=== PATIENT | male | born 1985 | race Caucasian/White ===

== ENCOUNTER 2020-12-21 09:00 | Outpatient (RCR) | payer OTHER, SELFPAY ==
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
== END 2021-01-01 12:16 | disposition home or self-care (01) ==
LOC: HO.PT 09:00
PROVIDERS: PCP Internal Medicine; Visit Provider Nurse Practitioner Family
DX: M54.2 Cervicalgia (principal); M62.830 Muscle spasm of back; M54.9 Dorsalgia, unspecified; M79.605 Pain in left leg
CPT/HCPCS: 97014; 97110; 97116; 97140; 97162

== ENCOUNTER 2021-04-30 08:26 | Outpatient (REF) | payer OTHER, SELFPAY ==
[2021-04-30 08:39] LABS: MANUAL DIFF FLAG NO
[2021-04-30 08:49] LABS: Basophils Absolute Auto 0.1 X10*3/uL (0.0-0.2); Basophils Percent Auto 0.9 % (0-2); Eosinophils Absolute Auto 0.1 X10*3/uL (0.0-0.4); Eosinophils Percent Auto 1.9 % (0-4); Hematocrit 40.6 % (42.0-52.0); Hemoglobin 12.9 g/dl (14.0-18.0); Imm Gran Abs Auto 0.02 X10*3/uL (0.00-0.03); Imm Gran Pct Auto 0.3 % (0.0-0.4); Lymphocytes Absolute Auto 2.5 X10*3/uL (1.2-4.9); Lymphocytes Percent Auto 37.2 % (20-40); Mean Corpuscular HGB Conc 31.8 g/dl (31.0-36.0); Mean Corpuscular Hemoglobin 28.9 pg (27.0-33.0); Mean Corpuscular Volume 90.8 fL (80.0-98.0); Mean Platelet Volume 9.3 fL (9.4-12.4); Monocytes Absolute Auto 0.6 X10*3/uL (0.1-1.2); Monocytes Percent Auto 8.5 % (2-11); Neutrophils Absolute Auto 3.4 x10*3/uL (2.0-8.3); Neutrophils Percent Auto 51.2 % (45-73); Platelet Count 313 X10*3/uL (160-400); Red Blood Count 4.47 X10*6/uL (4.60-5.80); Red Cell Distribution Width 12.8 % (11.0-16.0); White Blood Count 6.7 X10*3/uL (4.8-10.8)
[2021-04-30 09:28] LABS: Alanine Aminotransferase 29 U/L (0-40); Albumin Level 4.4 g/dL (3.5-5.0); Alkaline Phosphatase 77 U/L (39-117); Anion Gap 12 (12-20); Aspartate Amino Transferase 19 U/L (5-37); Bilirubin Total 0.3 mg/dL (0.0-1.0); Blood Urea Nitrogen 10 mg/dL (9-16); Calcium 9.7 mg/dL (8.4-10.2); Carbon Dioxide 27 mmol/L (22-29); Chloride 108 mmol/L (96-108); Cholesterol 163 mg/dL; Estimated Glomerular Filt Rate > 60; Glucose Fasting 106 mg/dL (60-99); HDL Cholesterol 23 mg/dL; LDL Cholesterol Calculated 105 mg/dl; Potassium 4.5 mmol/L (3.3-5.1); Sodium 142 mmol/L (135-145); Total Protein 7.2 g/dL (6.5-8.0); Triglycerides 178 mg/dL
[2021-04-30 09:43] LABS: HIV AB/AG Nonreactive (Nonreactive); HIV Num 1 0.07 S/CO (0.00-0.99); ~HepC Num1 0.13 S/CO (0.00-0.79); ~Hepatitis C Antibody Nonreactive (Nonreactive)
[2021-04-30 09:50] LABS: TSH reflex Free T4 0.82 uIU/mL (0.32-4.0)
== END 2021-04-30 08:27 | disposition home or self-care (01) ==
LOC: HO.LAB 08:26
PROVIDERS: PCP Nurse Practitioner Family; Visit Provider Nurse Practitioner Family
DX: Z11.59 Encounter for screening for other viral diseases (principal); Z11.4 Encounter for screening for human immunodeficiency virus [HIV]; I10 Essential (primary) hypertension; I83.90 Asymptomatic varicose veins of unspecified lower extremity; E78.00 Pure hypercholesterolemia, unspecified; Z83.3 Family history of diabetes mellitus
CPT/HCPCS: 36415; 80053; 80061; 84443; 85025; 86803; 87389

== ENCOUNTER 2021-09-03 07:38 | Outpatient (REF) | payer OTHER, SELFPAY ==
[2021-09-03 08:05] LABS: MANUAL DIFF FLAG NO
[2021-09-03 08:20] LABS: Basophils Absolute Auto 0.1 X10*3/uL (0.0-0.2); Basophils Percent Auto 0.7 % (0-2); Eosinophils Absolute Auto 0.1 X10*3/uL (0.0-0.4); Eosinophils Percent Auto 1.5 % (0-4); Hematocrit 40.1 % (42.0-52.0); Hemoglobin 12.9 g/dl (14.0-18.0); Imm Gran Abs Auto 0.03 X10*3/uL (0.00-0.03); Imm Gran Pct Auto 0.4 % (0.0-0.4); Lymphocytes Absolute Auto 2.3 X10*3/uL (1.2-4.9); Lymphocytes Percent Auto 26.8 % (20-40); Mean Corpuscular HGB Conc 32.2 g/dl (31.0-36.0); Mean Corpuscular Hemoglobin 29.5 pg (27.0-33.0); Mean Corpuscular Volume 91.8 fL (80.0-98.0); Mean Platelet Volume 9.4 fL (9.4-12.4); Monocytes Absolute Auto 0.8 X10*3/uL (0.1-1.2); Monocytes Percent Auto 8.9 % (2-11); Neutrophils Absolute Auto 5.3 x10*3/uL (2.0-8.3); Neutrophils Percent Auto 61.7 % (45-73); Platelet Count 303 X10*3/uL (160-400); Red Blood Count 4.37 X10*6/uL (4.60-5.80); Red Cell Distribution Width 13.1 % (11.0-16.0); White Blood Count 8.6 X10*3/uL (4.8-10.8)
[2021-09-03 08:41] LABS: Cholesterol 121 mg/dL; Glucose Fasting 90 mg/dL (60-99); HDL Cholesterol 23 mg/dL; LDL Cholesterol Calculated 86 mg/dl; Triglycerides 60 mg/dL
[2021-09-03 08:43] LABS: Estimated Average Glucose 97 mg/dL
== END 2021-09-03 07:39 | disposition home or self-care (01) ==
LOC: HO.LAB 07:38
PROVIDERS: PCP Nurse Practitioner Family; Visit Provider Nurse Practitioner Family
DX: Z00.00 Encounter for general adult medical examination without abnormal findings (principal); Z11.4 Encounter for screening for human immunodeficiency virus [HIV]; Z11.59 Encounter for screening for other viral diseases; E78.00 Pure hypercholesterolemia, unspecified; E11.9 Type 2 diabetes mellitus without complications; I83.90 Asymptomatic varicose veins of unspecified lower extremity; I10 Essential (primary) hypertension; Z83.3 Family history of diabetes mellitus
CPT/HCPCS: 36415; 80061; 82947; 83036; 85025

== ENCOUNTER → 2021-10-21 12:40 | Outpatient (BNVA) | payer OTHER, SELFPAY | PROVIDERS: PCP Nurse Practitioner Family; Visit Provider Surgery Vascular Surgery | DX: I83.12 Varicose veins of left lower extremity with inflammation (principal) | CPT/HCPCS: 99202 ==

== ENCOUNTER 2021-12-22 10:14 | Outpatient (REF) | payer OTHER, SELFPAY ==
--- NOTE | ~2021-12-22 | US_ITS ---
EXAMINATION: RIGHT and LEFT LOWER EXTREMITY VENOUS ULTRASOUND (Reflux Exam) CLINICAL INDICATION: leg pain and varicose veins. COMPARISON: None. TECHNIQUE: Color flow triplex imaging and compression Doppler was performed to evaluate both the deep and the superficial systems bilaterally. To evaluate the superficial system, the examination was performed in the upright position. Color-flow Doppler ultrasound and compression ultrasound were utilized. In addition, maneuvers were utilized to demonstrate reflux. FINDINGS: 1. DEEP VENOUS ULTRASOUND OF THE RIGHT LOWER EXTREMITY: Respiratory variation, normal compression and augmented flow are noted in the right common femoral vein as well as the right popliteal vein and there is no evidence of deep venous thrombosis at these locations. There is no evidence of reflux in the deep system in either the common femoral vein or the popliteal vein. There is no evidence of a Herman's cyst. 2. SUPERFICIAL ULTRASOUND WITH DOPPLER OF RIGHT LOWER EXTREMITY: The right great saphenous vein at the saphenofemoral junction measures 6 mm, at the mid thigh 4 mm, vitvd-gvh-wjmg 4 mm, invwb-zms-beqk 1 mm, at mid calf 3 mm and at the ankle measures 4 mm. There is right greater saphenous vein reflux measuring 3.5 seconds above the knee and 0.5 seconds at the knee. There is an accessory lateral greater saphenous vein that measures 4 to 6 mm and does not demonstrate reflux The right small saphenous vein is duplicated and measures 3-6 mm and shows 2.5 second reflux in the distal calf and 3.3 seconds reflux in the mid calf medially and 2.4 seconds reflux in the mid calf laterally. There is a counter top assembler in the mid thigh that measures 3 mm and does not demonstrate reflux. There is a counter top assembler at the knee that measures 1 mm and demonstrates 3.3 seconds reflux. There is a varicosity at the knee measuring 4 mm that demonstrates 1.1 seconds reflux. 3. DEEP VENOUS ULTRASOUND OF THE LEFT LOWER EXTREMITY: Respiratory variation, normal compression and augmented flow are noted in the left common femoral vein as well as the left popliteal vein and there is no evidence of deep venous thrombosis at these locations. There is no evidence of reflux in the deep system in either the common femoral vein or the popliteal vein. . There is no evidence of a Herman's cyst. 4. SUPERFICIAL ULTRASOUND WITH DOPPLER OF LEFT LOWER EXTREMITY: Left great saphenous vein at the saphenofemoral junction measures 12 mm, at the mid thigh 7 mm, wacic-fsa-drwg 8 mm, pwyer-qnt-lzku 3 mm, at mid calf 3 mm and at the ankle measures 3 mm. There is diffuse left greater saphenous vein reflux measuring maximum 3.4 cm in the mid thigh. There is an accessory lateral greater saphenous vein that measures 3 to 4 mm and does not demonstrate reflux. The left small saphenous vein measures 2-4 mm and shows no reflux. There is a counter top assembler in the thigh that measure 1 and 3 mm and do not demonstrate reflux. There are varicosities in the thigh and lower leg and measure between 4 and 8 mm and demonstrate reflux, maximum 3.3 seconds in the left mid calf. US/US venous duplex LE BI IMPRESSION: 1. No evidence of reflux or thrombus in the common femoral veins or popliteal veins bilaterally. 2. Right greater saphenous vein reflux at the knee and above the knee. Dilated duplicated right lesser saphenous vein with reflux. Reflux in a counter top assembler at the knee and varicosity at the knee. 3. Extensive left greater saphenous vein reflux. Multiple left varicosities with reflux. COMPARISON: None TECHNIQUE: Ultrasound of the deep veins is performed from the hip to the calf with compression sonography and color and pulse Doppler assessment. Spectral analysis with color-flow imaging is performed. FINDINGS: RIGHT: There is normal venous compression and respiratory variation and augmented flow. The visualized common femoral vein, superficial femoral vein, profunda femoral vein, popliteal vein, and the trifurcation region shows no evidence of deep venous thrombosis. There is no significant popliteal fossa cyst. LEFT: There is normal venous compression and respiratory variation and augmented flow. The visualized common femoral vein, superficial femoral vein, profunda femoral vein, popliteal vein, and the trifurcation region shows no evidence of deep venous thrombosis. There is no significant popliteal fossa cyst. If the patient's symptoms persist, followup ultrasound in 5 days 7 days might be of value to exclude proximal propagation from a non-visualized calf vein. IMPRESSION: No DVT demonstrated in the lower extremity.
== END 2021-12-22 10:15 | disposition home or self-care (01) ==
LOC: HO.US 10:14
PROVIDERS: Visit Provider Surgery Vascular Surgery
DX: I83.12 Varicose veins of left lower extremity with inflammation (principal)
CPT/HCPCS: 93970

== ENCOUNTER → 2021-12-23 09:16 | Outpatient (BNVA) | payer OTHER, SELFPAY | PROVIDERS: PCP Nurse Practitioner Family; Visit Provider Surgery Vascular Surgery | DX: I83.12 Varicose veins of left lower extremity with inflammation (principal) | CPT/HCPCS: 99212 ==

== ENCOUNTER → 2022-01-21 07:14 | Outpatient (BNVA) | payer OTHER, SELFPAY | PROVIDERS: PCP Nurse Practitioner Family; Visit Provider Surgery Vascular Surgery | DX: I83.12 Varicose veins of left lower extremity with inflammation (principal) | CPT/HCPCS: 36475 ==

== ENCOUNTER 2022-01-25 12:27 | Outpatient (REF) | payer OTHER, SELFPAY ==
--- NOTE | ~2022-01-25 | US_ITS ---
EXAMINATION: US VENOUS ULTRASOUND WITH DOPPLER LOWER EXTREMITY, LEFT CLINICAL INFORMATION: 4 days status post GSV ablation. COMPARISON: Preprocedure ultrasound 12/22/2021. TECHNIQUE: Ultrasound of the deep veins is performed from the hip to the calf with compression sonography and color and pulse Doppler assessment. Spectral analysis with color-flow imaging is performed. FINDINGS: There is normal venous compression and respiratory variation and augmented flow. The visualized common femoral vein, superficial femoral vein, profunda femoral vein, popliteal vein, and the trifurcation region shows no evidence of deep venous thrombosis. There is no significant popliteal fossa cyst. The GSV is occluded to a level 2.4 cm from the saphenofemoral junction. US/US venous duplex LE LT IMPRESSION: No DVT demonstrated in the left lower extremity. Excellent appearance status post GSV ablation.
== END 2022-01-25 12:28 | disposition home or self-care (01) ==
LOC: HO.US 12:27
PROVIDERS: Visit Provider Surgery Vascular Surgery
DX: M79.605 Pain in left leg (principal)
CPT/HCPCS: 93971

== ENCOUNTER → 2022-02-10 13:01 | Outpatient (BNVA) | payer OTHER, SELFPAY | PROVIDERS: PCP Nurse Practitioner Family; Visit Provider Surgery Vascular Surgery | DX: I83.12 Varicose veins of left lower extremity with inflammation (principal) | CPT/HCPCS: 99212 ==

== ENCOUNTER → 2022-03-04 09:40 | Outpatient (BNVA) | payer OTHER, SELFPAY | PROVIDERS: PCP Nurse Practitioner Family; Visit Provider Surgery Vascular Surgery | DX: I83.12 Varicose veins of left lower extremity with inflammation (principal) | CPT/HCPCS: 37766 ==

== ENCOUNTER → 2022-03-17 14:28 | Outpatient (BNVA) | payer OTHER, SELFPAY | PROVIDERS: PCP Nurse Practitioner Family; Visit Provider Surgery Vascular Surgery | DX: I83.12 Varicose veins of left lower extremity with inflammation (principal); Z98.890 Other specified postprocedural states | CPT/HCPCS: 99212 ==

== ENCOUNTER → 2022-05-10 14:49 | Outpatient (BNVA) | payer OTHER, SELFPAY | PROVIDERS: PCP Nurse Practitioner Family; Visit Provider Nurse Practitioner Family | DX: M79.671 Pain in right foot (principal); M79.672 Pain in left foot; G57.93 Unspecified mononeuropathy of bilateral lower limbs; G90.529 Complex regional pain syndrome I of unspecified lower limb; Z98.890 Other specified postprocedural states | CPT/HCPCS: 99202 ==

== ENCOUNTER 2022-06-08 15:00 | Outpatient (REF) | payer OTHER, SELFPAY ==
--- NOTE | ~2022-06-08 | MM_ITS ---
EXAMINATION: MM DIAGNOSTIC DIGITAL BREAST TOMOSYNTHESIS, BILATERAL US DIAGNOSTIC ULTRASOUND BREAST, BILATERAL CLINICAL INFORMATION: Bilateral fullness and tenderness retroareolar breasts, greater on left. Symptoms approximately 3 months duration. COMPARISON: None (current study represents initial baseline exam). TECHNIQUE: Digital breast tomosynthesis is performed in both the craniocaudal and mediolateral oblique views along with computer-aided detection (CAD). Synthesized 2D images are generated from the tomosynthesis. Ultrasound bilateral breasts is targeted to the retroareolar and periareolar regions. Grayscale imaging and color Doppler are performed without and with harmonics. FINDINGS: There are scattered areas of fibroglandular density (ACR BI-RADS breast composition Category b). There is mild subareolar gynecomastia type pattern, slightly greater on left. There is no mass or architectural abnormality or abnormal calcifications. The axilla and skin contours are unremarkable. There is incidental deodorant artifact overlying the left axilla. No skin thickening or coarsening of the stromal markings. Ultrasound bilateral breasts demonstrate mild subareolar gynecomastia type pattern, slightly greater on left. No cystic or solid mass or architectural abnormality. No skin thickening or edema tracking in soft tissue planes. Results are discussed with the patient at time of visit. MM/MM tomosynthesis diagnostic BI IMPRESSION: -Mild bilateral subareolar gynecomastia, slightly greater on left. ASSESSMENT: BI-RADS 2: Benign RECOMMENDATION: -Patient should be managed based on the clinical impression. If clinically indicated, further evaluation may be considered with surgical consult. Decision to proceed with biopsy should be based on clinical grounds and degree of clinical concern.
== END 2022-06-08 15:01 | disposition home or self-care (01) ==
LOC: HO.MAMMO 15:00
PROVIDERS: PCP Nurse Practitioner Family; Visit Provider Nurse Practitioner Family
DX: N63.15 Unspecified lump in the right breast, overlapping quadrants (principal); N63.25 Unspecified lump in the left breast, overlapping quadrants
CPT/HCPCS: 76642; 77062; 77066

== ENCOUNTER → 2022-06-14 08:50 | Outpatient (BNVA) | payer OTHER, SELFPAY | PROVIDERS: PCP Nurse Practitioner Family; Visit Provider Surgery Vascular Surgery | DX: I83.12 Varicose veins of left lower extremity with inflammation (principal) | CPT/HCPCS: 99212 ==

== ENCOUNTER 2022-06-23 07:45 | Outpatient (REF) | payer OTHER, SELFPAY ==
[2022-06-23 08:31] LABS: Estimated Average Glucose 88 mg/dL; Hemoglobin A1c % 4.7 %
[2022-06-23 09:00] LABS: Alanine Aminotransferase 44 U/L (0-40); Albumin Level 4.1 g/dL (3.5-5.0); Alkaline Phosphatase 37 U/L (39-117); Anion Gap 12 (12-20); Aspartate Amino Transferase 28 U/L (5-37); Bilirubin Total 0.9 mg/dL (0.0-1.0); Blood Urea Nitrogen 11 mg/dL (9-16); Carbon Dioxide 27 mmol/L (22-29); Chloride 105 mmol/L (96-108); Cholesterol 199 mg/dL; Estimated Glomerular Filt Rate > 60; Glucose Random 88 mg/dL (60-115); HDL Cholesterol 13 mg/dL; LDL Cholesterol Calculated 164 mg/dl; Potassium 4.9 mmol/L (3.3-5.1); Sodium 139 mmol/L (135-145); Total Protein 7.1 g/dL (6.5-8.0); Triglycerides 110 mg/dL
[2022-06-23 09:28] LABS: Appearance Urine Clear; Color Urine Dark Yellow; Glucose Urine UA Negative (Negative); Leukocyte Esterase Urine Negative (Negative); Nitrite Urine Negative (Negative); PH 6.5 (5.0-9.0); Specific Gravity - Urine >= 1.030 (1.005-1.025); UMIC TRIGGER UACC YES; Urine Blood Negative (Negative); Urine Ketones Negative (Negative); Urine Protein 30 (1+) mg/dL (Neg-Trace)
[2022-06-23 09:31] LABS: Folate 12.6 ng/mL (> or = 4.0); TSH reflex Free T4 0.94 uIU/mL (0.32-4.0); Vitamin B12 419 pg/mL (200-900); Vitamin D 25-OH Total 11.5 ng/mL (>30)
[2022-06-23 09:32] LABS: Bacteria Urine None Seen (None Seen); Hyaline Casts Urine 0-2 /LPF (0-2); Squamous Epithelial Cell Urine 0-2 /HPF (0-2); WBC Urine 0-5 /HPF (0-5)
[2022-06-23 11:06] LABS: CT PCR NOT DETECTED (Not Detect.); NG PCR NOT DETECTED (Not Detect.)
[2022-06-24 08:51] LABS: Syphilis Screen Nonreactive (Nonreactive)
[2022-06-24 09:08] LABS: HBsAGNum1 0.32 S/CO (0.00-0.99); HIV AB/AG Nonreactive (Nonreactive); HIV Num 1 0.05 S/CO (0.00-0.99); Hepatitis B Core Antibody Nonreactive (Nonreactive); Hepatitis B Surface Antigen Negative (Negative); ~HepC Num1 0.07 S/CO (0.00-0.79); ~Hepatitis C Antibody Nonreactive (Nonreactive)
[2022-06-24 10:42] LABS: HBS Num1 328.05 mIU/mL (0-7.99); ~Hepatitis B Surface Antibody REACTIVE (Nonreactive)
[2022-07-04 14:44] LABS: Testosterone, Free 439.4 pg/mL (35.0-155.0); Testosterone, Total 1085 ng/dL (250-1100)
== END 2022-06-23 07:46 | disposition home or self-care (01) ==
LOC: HO.LAB 07:45
PROVIDERS: Absent Provider Nurse Practitioner Family; PCP Nurse Practitioner Family; Visit Provider Nurse Practitioner Family
DX: Z13.29 Encounter for screening for other suspected endocrine disorder (principal); Z13.220 Encounter for screening for lipoid disorders; Z13.21 Encounter for screening for nutritional disorder; Z11.3 Encounter for screening for infections with a predominantly sexual mode of transmission; Z11.4 Encounter for screening for human immunodeficiency virus [HIV]; R79.89 Other specified abnormal findings of blood chemistry
CPT/HCPCS: 0353U; 36415; 80053; 80061; 81001; 82306; 82607; 82746; 83036; 84402; 84403; 84443; 86704; 86706; 86780; 86803; 87340; 87389

== ENCOUNTER 2022-06-29 09:22 | Outpatient (REF) | payer OTHER, SELFPAY ==
[2022-06-29 10:45] LABS: Hematocrit 43.2 % (42.0-52.0); Hemoglobin 14.3 g/dl (14.0-18.0); Mean Corpuscular HGB Conc 33.1 g/dl (31.0-36.0); Mean Corpuscular Hemoglobin 28.3 pg (27.0-33.0); Mean Corpuscular Volume 85.5 fL (80.0-98.0); Mean Platelet Volume 9.9 fL (9.4-12.4); Platelet Count 416 X10*3/uL (160-400); Red Blood Count 5.05 X10*6/uL (4.60-5.80); Red Cell Distribution Width 14.8 % (11.0-16.0); White Blood Count 9.5 X10*3/uL (4.8-10.8)
[2022-06-29 11:34] LABS: Alanine Aminotransferase 45 U/L (0-40); Albumin Level 4.1 g/dL (3.5-5.0); Alkaline Phosphatase 38 U/L (39-117); Aspartate Amino Transferase 33 U/L (5-37); Bilirubin Direct 0.3 mg/dL (0.0-0.5); Bilirubin Total 1.1 mg/dL (0.0-1.0); Total Protein 7.1 g/dL (6.5-8.0)
[2022-06-29 12:28] LABS: Appearance Urine Clear; Color Urine Dark Yellow; Glucose Urine UA Negative (Negative); Leukocyte Esterase Urine Trace (Negative); Nitrite Urine Negative (Negative); PH 8.5 (5.0-9.0); Specific Gravity - Urine >= 1.030 (1.005-1.025); UMIC TRIGGER UACC YES; Urine Blood Negative (Negative); Urine Ketones Trace mg/dL (Negative); Urine Protein 100 (2+) mg/dL (Neg-Trace)
[2022-06-29 12:49] LABS: Bacteria Urine None Seen (None Seen); Hyaline Casts Urine 0-2 /LPF (0-2); Squamous Epithelial Cell Urine 0-2 /HPF (0-2); WBC Urine 0-5 /HPF (0-5)
[2022-07-07 14:39] LABS: Testosterone, Free 339.4 pg/mL (35.0-155.0); Testosterone, Total 981 ng/dL (250-1100)
== END 2022-06-29 09:23 | disposition home or self-care (01) ==
LOC: HO.LAB 09:22
PROVIDERS: Nurse Practitioner Family; PCP Nurse Practitioner Family; Visit Provider Nurse Practitioner Family
DX: Z00.00 Encounter for general adult medical examination without abnormal findings (principal); R53.82 Chronic fatigue, unspecified; R73.01 Impaired fasting glucose; R79.89 Other specified abnormal findings of blood chemistry; R35.1 Nocturia
CPT/HCPCS: 36415; 80076; 81001; 81003; 84402; 84403; 85027

== ENCOUNTER 2022-07-21 13:46 | Outpatient (REF) | payer OTHER, SELFPAY ==
--- NOTE | 2022-07-21 09:15 | EMG_ITS ---
Bilateral tibial and peroneal motor studies were performed. Bilateral superficial peroneal and sural sensory studies were performed. Medial and lateral plantar studies were performed. Needle examination was performed. 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 MD MARLEN Regalado/ANUSHA / [phone]
== END 2022-07-21 13:47 | disposition home or self-care (01) ==
LOC: HO.NEURO 13:46
PROVIDERS: PCP Nurse Practitioner Family; Visit Provider Nurse Practitioner Family
DX: G90.529 Complex regional pain syndrome I of unspecified lower limb (principal); G57.93 Unspecified mononeuropathy of bilateral lower limbs; M79.671 Pain in right foot; M79.672 Pain in left foot; Z98.890 Other specified postprocedural states
CPT/HCPCS: 95886; 95913

== ENCOUNTER 2023-02-15 21:10 | Emergency (ER) | payer OTHER, SELFPAY ==
[2023-02-15 21:17] VITALS: BP 129/79; PULSE 83; RESP 16; TEMP 36.1; O2SAT 99; BMI 32.0
== END 2023-02-15 21:45 | disposition left against medical advice (07) ==
PROVIDERS: Emergency Provider Emergency Medicine
DX: M54.50 Low back pain, unspecified (principal)
CPT/HCPCS: 99281

== ENCOUNTER 2023-03-06 21:31 | Emergency (ER) | payer OTHER, SELFPAY ==
[2023-03-06 21:37] VITALS: BP 137/79; PULSE 81; RESP 20; TEMP 36.1; O2SAT 98; BMI 32.1
== END 2023-03-07 00:05 | disposition left against medical advice (07) ==
LOC: HO.ED 23:56
PROVIDERS: Emergency Provider Emergency Medicine
DX: M54.50 Low back pain, unspecified (principal)
CPT/HCPCS: 99281

== ENCOUNTER 2023-06-13 11:16 | Outpatient (AMB) | payer OTHER, SELFPAY ==
[2023-06-13 11:20] VITALS: BMI 32.1
--- NOTE | 2023-06-13 11:20 | A.OFFVIS_ITS ---
Intake Vital Signs 06/13/23 11:20 Height 5 ft 11 in Weight 230 lb BMI 32.1 Intake Visit Reasons: Discuss micro Intake Note: follow up Left Micro 03/04/2022 and left SSV RFA 01/21/2022 & Left GSV RFA 01/14/2022. Has new large VV Left calf and behin knee, causing pain. Accompanied by: Self / Same As Patient Allergies Sulfa (Sulfonamide Antibiotics) Allergy (Intermediate, Verified 06/13/23 11:33) Itchy HPI Discuss micro HPI Details Very pleasant 38-year-old gentleman presents for follow-up regarding venous disease. We had done procedures inclusive of left great saphenous vein ablation and left microphlebectomy nearly 15 months ago. Reports that he was doing fairly well since that time. He now notes new varicosities that have developed in the calf region. They have been a source of pain and discomfort for him. 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 [employer] Cognitive needs: Yes (Cane) Hearing needs: No Vision needs: No Review of Systems Const Reports as per HPI ENT Reports no additional complaints Card Denies chest pain, Denies chest pain at rest and Denies chest pain with activity Resp Denies chest congestion and Denies cough GI Reports no additional complaints Musc Details: pain over varicosities, aching of lower extremities, swelling, cramping, heaviness and tiredness, itching Denies abnormal gait Skin/Breast Reports pruritus and Denies wounds Neuro Reports no additional complaints and Denies abnormal gait Psych Denies no additional complaints Physical Exam Vital Signs: BMI result Body Mass Index 32.1 Const General: cooperative, healthy appearing and comfortable Orientation/consciousness: oriented to person, oriented to place and oriented to time Neck Carotids: no bruits Chest Chest palpation & inspection: normal inspection of the chest and normal palpation of entire chest wall Resp Effort & Inspection: normal respiratory effort and able to speak in complete sentences Cardio Rate: regular rate Heart sounds: S1 normal heart sound present and S2 normal heart sound present Peripheral pulses: Peripheral pulses 2+ throughout GI Inspection: Yes normal to inspection Skin Other: +2 edema, large rope-like varicosities greater than 4 mm left calf CEAP Classification C4 - skin color changes Ep - Etiology Primary As - superficial veins P - reflux General skin exam: dry skin Neuro General: oriented to person, oriented to place and oriented to time Extrem Right lower extremity: full ROM, normal capillary refill and edema Left lower extremity: full ROM, normal capillary refill and edema Psych Mental Status: mental status grossly normal Assessment & Plan Assessment & Plan (1) Varicose veins of left lower extremity with inflammation: Comment: 01/21/2022 - left GSV Radiofrequency ablation 03/04/2022 - left leg microphlebectomy Code(s): I83.12 - Varicose veins of left lower extremity with inflammation Plan: In short patient has recurrent venous disease. I have taken the liberty of ordering repeat left lower extremity venous insufficiency testing to assess the status of his small saphenous vein and see if the ablation was complete. He will follow up with us after testing. Thank you for allowing us to assist in his care. If there are any questions or concerns please do not hesitate to contact us Orders: Orders US venous duplex LE LT 1 Week I83.12 - Varicose veins of left lower extremity with inflammation Coding Level of Care Code Est Pt Level 4 (44040) Diagnoses Varicose veins of left lower extremity with inflammation I83.12
== END 2023-06-13 11:53 | disposition home or self-care (01) ==
PROVIDERS: Visit Provider Surgery Vascular Surgery
DX: I83.12 Varicose veins of left lower extremity with inflammation (principal)
CPT/HCPCS: 99213

== ENCOUNTER → 2023-06-13 11:16 | Outpatient (BNVA) | payer OTHER, SELFPAY | PROVIDERS: Visit Provider Surgery Vascular Surgery | DX: I83.12 Varicose veins of left lower extremity with inflammation (principal) | CPT/HCPCS: 99212 ==

== ENCOUNTER 2023-06-23 10:24 | Outpatient (REF) | payer OTHER, SELFPAY ==
--- NOTE | ~2023-06-23 | US_ITS ---
EXAMINATION: US LOWER EXTREMITY (REFLUX EXAM), LEFT CLINICAL INDICATION: Status post left GSC RFA on 01/21/2022 COMPARISON: Venous duplex 01/25/2022 TECHNIQUE: Color flow triplex imaging and compression Doppler was performed to evaluate both the deep and the superficial systems of the left lower extremity. To evaluate the superficial system, the examination was performed in the upright position. Color-flow Doppler ultrasound and compression ultrasound were utilized. In addition, maneuvers were utilized to demonstrate reflux. FINDINGS: 1. DEEP VENOUS DOPPLER ULTRASOUND: Common Femoral Vein: Compressible, normal respiratory variation and augmented flow. Femoral Vein: Compressible, normal color flow and augmentation. Popliteal Vein: Compressible, normal augmentation. Deep Reflux: There is no evidence of reflux in the deep system in either the common femoral vein or the popliteal vein. There is no evidence of a Herman's cyst. 2. SUPERFICIAL VENOUS DOPPLER ULTRASOUND: GREAT SAPHENOUS VEIN: Saphenofemoral Junction: 0.9 cm; Reflux: 7.2 ms Proximal Thigh: 0.4 cm; Reflux: 0 ms Mid Thigh: 0.1 cm; Reflux: 0 ms Above Knee: 0.3 cm; Reflux: 0 ms At Knee: 0.3 cm; Reflux: 0 ms Below Knee: 0.3 cm; Reflux: Greater than 2804 ms Mid Calf: 0.2 cm; Reflux: 2104 ms Ankle: 0.3 cm; Reflux: 0 ms DUPLICATED MEDIAL GREAT SAPHENOUS VEIN: Diameter: None Imaged Reflux: NA DUPLICATED LATERAL GREAT SAPHENOUS VEIN: Diameter: 0.3 cm Reflux: No reflux SMALL SAPHENOUS VEIN: Proximal: 0.2 cm; Reflux: 0 ms Distal: 0.3 cm; Reflux: 0 ms VEIN OF GIACOMINI: None Imaged. PERFORATORS: Location: Left GSV distal thigh Size: 0.3 cm Reflux: 0 ms Location: Left calf lateral side Size: 0.4 cm Reflux: 0 ms VARICOSITIES: Location: Left GSV proximal calf Size: 0.3 cm Reflux: Greater than 2628 ms Location: Left GSV proximal calf Size: 0.4 cm Reflux: Greater than 2208 ms Location: Left GSV mid calf Size: 0.3 cm Reflux: Greater than 3092 ms Location: Left GSV distal calf Size: 0.3 cm Reflux: 0 ms Location: Left GSV distal calf Size: 0.3 cm Reflux: 0 ms Location: Left calf lateral side proximally Size: 0.2 cm Reflux: Greater than 2356 ms Location: Left calf lateral side mid Size: 0.2 cm Reflux: Greater than 2740 ms Location: Left calf lateral side distal Size: 0.2 cm Reflux: Greater than 2196 ms US/US venous duplex LE LT IMPRESSION: 1. Successful thrombosis of the greater saphenous vein in the thigh following RFA. 2. The greater saphenous vein below the knee is patent with reflux greater than 2804 ms. 3. Multiple refluxing varicosities noted in the left calf, as described.
== END 2023-06-23 10:25 | disposition home or self-care (01) ==
LOC: HO.US 10:24
PROVIDERS: Visit Provider Surgery Vascular Surgery
DX: I83.12 Varicose veins of left lower extremity with inflammation (principal); Z98.890 Other specified postprocedural states
CPT/HCPCS: 93971

== ENCOUNTER 2023-06-23 14:56 | Outpatient (AMB) | payer OTHER, SELFPAY ==
[2023-06-23 14:57] VITALS: BP 122/78; PULSE 74; O2SAT 98; BMI 32.4
--- NOTE | 2023-06-23 14:57 | MHC.PC.OV ---
Vital Signs 06/23/23 14:57 Height 5 ft 11 in Weight 232 lb BMI 32.4 BP 122/78 Blood Pressure Location Lt brachial Position Sitting Pulse 74 Pulse Source Pulse Oximeter Pulse Oximetry (%) 98 Oxygen Delivery Method Room Air Intake Visit Reasons: Annual Exam/transfer of care from [facility] Source Inspector Required: No Accompanied by: Self / Same As Patient Allergies Sulfa (Sulfonamide Antibiotics) Allergy (Intermediate, Verified 06/23/23 15:31) Itchy Medication List - Last Reconciled 06/23/23 by Michael Lea MD acetaminophen 500 - 1,000 mg (1 - 2 x 500 mg) PO Q6H PRN cholecalciferol (vitamin D3) 50 mcg PO DAILY diclofenac sodium 1% (Voltaren Arthritis Pain) 2 grams topical QID fluticasone propionate 50 mcg/actuation 1 spray intranasal BID gabapentin 300 mg PO BID hydroxyzine HCl 25 mg PO BEDTIME PRN nabumetone 500 mg PO BID PRN Tobacco use date assessed: 06/23/23 Dental Screening Dental Screen Date: 06/23/23 Did you have a dental visit in the last 12 months?: Yes Did you have a dental problem in the last 6 months where you did not have access to dental care?: No Was dental information given to patient?: Patient has dentist HPI Annual Exam/transfer of care from [facility] HPI Details Patient comes in today for his annual physical examination - is transferring over from [facility], who is no longer with the practice States that he continues to experience increased pain in his right ankle and foot - chronic Was seeing pain management previously but stopped going after his last visit with them in April 2022 when they started talking to him about implanting a spinal cord stimulator as he got concerned - states that he only wants to get some cortisone injections for some pain relief and does not want to get into other interventional procedures at this time States that he called them up again recently to schedule a follow up appointment and is now scheduled for next week Needs his Gabapentin and Hydroxyzine Rx refilled States that he has been concerned about his own risks for prostate cancer as his dad and a couple of other family members were diagnosed with prostate cancer a few years ago and he would like to get tested for this Patient states that he feels okay otherwise He denies any headaches or dizziness Denies any chest pains, no shortness of breath No nausea /vomiting, no abdominal pain No change in bowel habits noted He denies any acute urinary symptoms PFSH Medical History (Updated 06/25/23 @ 16:42 by Michael Lea MD) Obesity (BMI 30-39.9) Vitamin D deficiency Hypercholesteremia Bilateral breast lump Surgical History (Updated 06/23/23 @ 15:42 by Michael Lea MD) History of ankle surgery History of foot surgery Family History Mother Diabetes Father Substance use disorder Social History Housing: House Alcohol intake: never Patient Tobacco Use Status: Former Tobacco user Quit Date: 5 years ago e-Cigarette/Vaping Use: Never Used Second Hand Smoke Exposure: No service: No Current occupational status: employed Current occupation: [employer] Cognitive needs: Yes (Cane) Hearing needs: No Vision needs: No Questionnaire PHQ-9 Over the last 2 weeks, how often have you been bothered by any of the following problems? 1. Little interest or pleasure in doing things: not at all 2. Feeling down, depressed, or hopeless: not at all 3. Trouble falling or staying asleep, or sleeping too much: not at all 4. Feeling tired or having little energy: not at all 5. Poor appetite or overeating: not at all 6. Feeling bad about yourself - or that you are a failure or have let yourself or your family down: not at all 7. Trouble concentrating on things, such as reading the newspaper or watching television: not at all 8. Moving or speaking so slowly that other people could have noticed. Or the opposite - being so fidgety or restless that you have been moving around a lot more than usual: not at all 9. Thoughts that you would be better off or of hurting yourself in some way: not at all Total score: 0 Depression Screening Interpretation: Negative Depression Screening Done: Yes 36655 - PHQ-9 Billing: Yes Source: Developed by Drs. Damon Mendoza, Soledad Shepard, Pasha Humphrey and colleagues, with an educational bang from [employer] [facility]. Thrive Questionnaire Date Thrive assessed: 06/23/23 I am a: Patient What is your living situation today?: I have a steady place to live Within the past 12 months, did the food you bought not last and you didn't have the money to get more?: Never true Within the past 12 months, did you worry whether your food would run out before you got money to buy more?: Never true Do you have trouble paying for medicines?: No Do you have trouble getting transportation to medical appointments?: No Do you have trouble paying your heating and electricity bill?: No Do you have trouble taking care of your child, family member or friend?: No Do you have trouble with day-to-day activities such as bathing, preparing meals, shopping, managing finances, etc.?: No Are you currently unemployed and looking for a job?: No Are you interested in more education?: No Please select the resources that you would like help with: None Currently or been in a relationship where the following occur: no concerns reported THRIVE Score: 0 AUDIT C Alcohol Use Questionnaire (AUDIT-C) 1. How often do you have a drink containing alcohol?: Never 2. How many drinks containing alcohol do you have on a typical day when you are drinking?: 1 or 2 (0) 3. How often do you have six or more drinks on one occasion?: Never Total Score: 0 Score Reviewed/Action Taken: Yes CORNELIA-7 AMB Questionnaire CORNELIA-7 Date CORNELIA - 7 assessed: 06/23/23 Feeling nervous, anxious, or on edge: 0 = Not at all Not being able to stop or control worryin = Not at all Worrying too much about different things: 0 = Not at all Trouble relaxin = Not at all Being so restless that it is hard to sit still: 0 = Not at all Becoming easily annoyed or irritable: 0 = Not at all Feeling afraid as if something awful might happen: 0 = Not at all Total CORNELIA-7 score (0-4 normal; 5-9 mild; 10-14 moderate; 15-21 severe): 0 Source: Developed by Drs. Damon Mendoza, Soledad Shepard, Pasha Humphrey and colleagues, with an educational bang from [facility]. CORNELIA-7 Assessment Billing CORNELIA-7 Assessment Tool: CORNELIA-7 Assessment 30757 Review of Systems Const Denies chills, Denies fatigue, Denies fever(s), Denies headache(s), Denies malaise and Denies weakness Eyes Denies blurry vision, Denies change in vision, Denies irritation and Denies itchy eyes ENT Denies dysphagia, Denies dizziness, Denies otalgia, Denies headache(s), Denies nasal congestion, Denies neck pain, Denies odynophagia and Denies sore throat Card Denies chest pain, Denies rapid heart rate, Denies irregular heart rhythm, Denies palpitations and Denies dyspnea Resp Denies chest congestion, Denies cough, Denies dyspnea and Denies wheezing GI Denies abdominal pain, Denies bloating, Denies constipation, Denies dysphagia, Denies heartburn, Denies diarrhea, Denies nausea, Denies odynophagia and Denies vomiting Denies hematuria, Denies difficulty urinating, Denies dysuria, Denies nocturia, Denies urinary frequency and Denies urinary urgency Musc Denies back pain, Reports arthralgias (chronic - over the right foot and ankle), Denies joint swelling, Denies muscle weakness and Denies neck pain Skin/Breast Denies change in pigmentation, Denies lesions, Denies rash and Denies unusual bruising Neuro Denies dizziness, Denies headache(s), Denies paresthesias and Denies weakness Endo Denies fatigue and Denies palpitations Aller/Immun Denies itchy eyes and Denies wheezing Physical exam (Primary Care) Vital Signs: Last Vital Signs Pulse 74 06/23/23 14:57 BP 122/78 06/23/23 14:57 Pulse Ox 98 06/23/23 14:57 Oxygen Delivery Method Room Air 06/23/23 14:57 BMI result Body Mass Index 32.4 Tobacco/Smoking Status: Tobacco use Status Tobacco use date assessed 06/23/23 06/23/23 14:59 Patient Tobacco Use Status Former Tobacco user 06/23/23 14:59 e-Cigarette/Vaping Use Never Used 06/23/23 14:59 PHQ-9: PHQ-9 Score PHQ-9: Total score 0 06/25/23 04:39 Depression Screening Interpretation: Negative Thrive Assessment: Date of Thrive Assessment Date Thrive assessed 06/23/23 06/23/23 14:59 Currently or been in a relationship where the following occur: no concerns reported Const General: no acute distress, alert and awake Orientation/consciousness: patient oriented x3 HENMT Head: Yes normocephalic and Yes atraumatic Ears: external ears normal, TM's normal bilaterally and EAC's normal General nose exam: No nasal discharge present Face and sinus: Yes normal facial exam and Yes sinuses nontender Teeth and gingiva: dentition normal Throat: Yes posterior oropharynx normal and Yes tonsils normal (no TP congestion) Eyes Eyelids: Yes eyelids normal Conjunctivae: conjunctivae normal Pupils: Equal, round and reactive pupils present EOM: EOMs intact bilaterally Neck Neck: Yes no lymphadenopathy and Yes supple Thyroid: Thyroid normal Resp Auscultation: clear to auscultation bilaterally, no rales and no wheezes Cardio Rate: regular rate Rhythm: regular rhythm Heart sounds: no murmurs GI Palpation (GI): Soft to palpation, nontender and No hepatosplenomegaly present Auscultation: normal bowel sounds General: Yes no CVA tenderness Back/Spine/Pelvis Back: no CVA tenderness Thoracic/Lumbar Spine: thoracic and lumbar spine normal to inspection Skin Lesions: no lesions Rashes: no rashes Neuro General: patient oriented x3, moves all extremities, no focal motor deficits and CN's II-XI intact bilaterally Cranial nerves: Yes Equal, round and reactive pupils present Cognition (Neuro): normal cognition Gait exam (Neuro): Normal gait present Extrem General: Yes no clubbing, cyanosis or edema Right lower extremity: ankle Details: tenderness; no swelling and foot Details: tenderness; no edema Assessment and Plan Assessment & Plan (1) Annual physical exam: Code(s): Z00.00 - Encounter for general adult medical examination without abnormal findings Plan: Check labs Per request, will include a PSA level to his labs but advised that as he currently does not have any significant urinary symptoms, it will more likely come out normal (2) Chronic pain of right ankle: Code(s): M25.571 - Pain in right ankle and joints of right foot; G89.29 - Other chronic pain Plan: Continue Gabapentin 300 mg BID, Nabumetone 500 mg BID PRN, Volaren 1% gel QID PRN and Acetaminophen 500 mg 1 to 2 tablets Q 6 hours PRN for pain Patient feels that the orthopedic hardware (metal rods and pins) that are still in his foot and ankle are the main reason that he is still experiencing increased pain; states his left foot and ankle feels fine after the hardwares were removed a few years ago Follow-up with Pain Management as scheduled (3) Chronic pain in right foot: Code(s): M79.671 - Pain in right foot; G89.29 - Other chronic pain Plan: Follow up with pain management as scheduled (4) Allergic rhinitis: Code(s): J30.9 - Allergic rhinitis, unspecified Qualifiers: Allergic rhinitis trigger: unspecified Allergic rhinitis seasonality: unspecified Qualified Code(s): J30.9 - Allergic rhinitis, unspecified Plan: Continue Fluticasone 50 mcg nasal spray QD PRN (5) Vitamin D deficiency: Code(s): E55.9 - Vitamin D deficiency, unspecified Plan: Continue Vitamin D3 2000 units QD (6) Anxiety: Code(s): F41.9 - Anxiety disorder, unspecified Plan: Continue Hydroxyzine 25 mg Q HS PRN (7) Obesity (BMI 30-39.9): Code(s): E66.9 - Obesity, unspecified Plan: Reinforced diet; exercise and weight loss are not realistic given patient's current physical issues Plan Follow up in 3 to 4 months Orders: Orders Comprehensive [place]. Panel Fast 06/23/23 E78.00 - Pure hypercholesterolemia, unspecified, Z00.00 - Encounter for general adult medical examination without abnormal findings Lipid Panel 06/23/23 E78.00 - Pure hypercholesterolemia, unspecified, Z00.00 - Encounter for general adult medical examination without abnormal findings TSH reflex Free T4 06/23/23 E78.00 - Pure hypercholesterolemia, unspecified, Z00.00 - Encounter for general adult medical examination without abnormal findings UA CC w/rflx Micro + Cult 06/23/23 R30.0 - Dysuria, Z00.00 - Encounter for general adult medical examination without abnormal findings Vitamin D 25-OH Total 06/23/23 E55.9 - Vitamin D deficiency, unspecified, Z00.00 - Encounter for general adult medical examination without abnormal findings Prostate Specific Antigen 06/23/23 N40.0 - Benign prostatic hyperplasia without lower urinary tract symptoms, Z00.00 - Encounter for general adult medical examination without abnormal findings Complete Blood Count Auto Diff 06/23/23 D64.9 - Anemia, unspecified, Z00.00 - Encounter for general adult medical examination without abnormal findings Medications: Refilled hydroxyzine HCl 25 mg PO BEDTIME PRN 30 tabs 1RF for anxiety F41.9 - Anxiety disorder, unspecified gabapentin 300 mg PO BID 60 caps 3RF for pain G57.93 - Unspecified mononeuropathy of bilateral lower limbs, M79.671 - Pain in right foot, M79.672 - Pain in left foot Coding Level of Care Code Est Pt Prev Care 18-39y(36569) Diagnoses Annual physical exam Z00.00 Chronic pain of right ankle M25.571; G89.29 Chronic pain in right foot M79.671; G89.29 Allergic rhinitis, unspecified seasonality, unspecified trigger J30.9 Allergic rhinitis trigger: unspecified Allergic rhinitis seasonality: unspecified Vitamin D deficiency E55.9 Anxiety F41.9 Obesity (BMI 30-39.9) E66.9 Additional Codes CORNELIA-7 Assessment Billing - CORNELIA-7 Assessment Tool: CORNELIA-7 Assessment 22985 ([id number])
== END 2023-06-23 15:43 | disposition home or self-care (01) ==
PROVIDERS: PCP Internal Medicine; Visit Provider Internal Medicine
DX: Z00.00 Encounter for general adult medical examination without abnormal findings (principal); M25.571 Pain in right ankle and joints of right foot; G89.29 Other chronic pain; M79.671 Pain in right foot; J30.9 Allergic rhinitis, unspecified; E55.9 Vitamin D deficiency, unspecified; F41.9 Anxiety disorder, unspecified; E66.9 Obesity, unspecified
CPT/HCPCS: 99395

== ENCOUNTER 2023-07-20 13:02 | Outpatient (AMB) | payer OTHER, SELFPAY ==
--- NOTE | 2023-07-20 13:10 | MHC.OFFVIS ---
Intake Vital Signs 07/20/23 13:13 Height 5 ft 11 in Weight 232 lb BMI 32.4 Intake Visit Reasons: follow up US 06/23/2023 Intake Note: follow up Left LE 06/23/23 for Left LE VV w/ pain and ruptured VV and bleeding. Accompanied by: Self / Same As Patient Allergies Sulfa (Sulfonamide Antibiotics) Allergy (Intermediate, Verified 07/20/23 13:16) Itchy HPI follow up 06/23/2023 HPI Details Pleasant 38-year-old gentleman with a history significant for venous disease. We had done several procedures on his left lower extremity in the past. Now presents for follow-up with recurrent varicosities in particular the calf region. 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 Cognitive needs: Yes (Cane) Hearing needs: No Vision needs: No Review of Systems Const Reports as per HPI ENT Reports no additional complaints Card Denies chest pain, Denies chest pain at rest and Denies chest pain with activity Resp Denies chest congestion and Denies cough GI Reports no additional complaints Musc Details: pain over varicosities, aching of lower extremities, swelling, cramping, heaviness and tiredness, itching Denies abnormal gait Skin/Breast Reports pruritus and Denies wounds Neuro Reports no additional complaints and Denies abnormal gait Psych Denies no additional complaints Physical Exam Vital Signs: BMI result Body Mass Index 32.4 Const General: cooperative, healthy appearing and comfortable Orientation/consciousness: oriented to person, oriented to place and oriented to time Neck Carotids: no bruits Chest Chest palpation & inspection: normal inspection of the chest and normal palpation of entire chest wall Resp Effort & Inspection: normal respiratory effort and able to speak in complete sentences Cardio Rate: regular rate Heart sounds: S1 normal heart sound present and S2 normal heart sound present Peripheral pulses: Peripheral pulses 2+ throughout GI Inspection: Yes normal to inspection Skin Other: +2 edema, large rope-like varicosities greater than 4 mm left calf CEAP Classification C4 - skin color changes Ep - Etiology Primary As - superficial veins P - reflux General skin exam: dry skin Neuro General: oriented to person, oriented to place and oriented to time Extrem Right lower extremity: full ROM, normal capillary refill and edema Left lower extremity: full ROM, normal capillary refill and edema Psych Mental Status: mental status grossly normal Results Reviewed Results Reviewed: Brief summary of venous insufficiency testing is as follows: left great saphenous vein: Positive left small saphenous vein: negative left accessory vein: none present Please note there is no evidence of any venous aneurysms or significant tortuosity Assessment & Plan Assessment & Plan (1) Varicose veins of left lower extremity with inflammation: Comment: 01/21/2022 - left GSV Radiofrequency ablation 03/04/2022 - left leg microphlebectomy Code(s): I83.12 - Varicose veins of left lower extremity with inflammation Plan: This patient has varicose veins with inflammation. They continue to be a source of discomfort for the patient. The patient has tried conservative treatment with compression, leg elevation and exercise program for over 3 months time. They have been compliant with all treatment. This has provided minimal relief for the patient. I do not anticipate this course of treatment will alter the underlying etiology. It appears that he has remnant left great saphenous vein in the calf region which continues to be refluxing The patient has been scheduled for lower extremity venous treatment inclusive of --- left great saphenous vein Cyanoacralate ablation. Risks, benefits, and complications of this procedure has been discussed in detail with the patient including but not limited to bleeding, infection, and the development of a DVT. The patient has demonstrated a clear understanding and has consented. We will schedule the patient as soon as possible. Thank you for allowing us to participate in this patient's care. If there are any questions or concerns please do not hesitate to contact us. Coding Level of Care Code Est Pt Level 4 (09533) Diagnoses Varicose veins of left lower extremity with inflammation I83.12
[2023-07-20 13:13] VITALS: BMI 32.4
== END 2023-07-20 13:43 | disposition home or self-care (01) ==
LOC: HO.HVS 13:04
PROVIDERS: PCP Internal Medicine; Visit Provider Surgery Vascular Surgery
DX: I83.12 Varicose veins of left lower extremity with inflammation (principal)
CPT/HCPCS: 99214

== ENCOUNTER → 2023-07-20 13:02 | Outpatient (BNVA) | payer OTHER, SELFPAY | PROVIDERS: PCP Internal Medicine; Visit Provider Surgery Vascular Surgery | DX: I83.12 Varicose veins of left lower extremity with inflammation (principal) | CPT/HCPCS: 99212 ==

== ENCOUNTER 2023-08-04 13:17 | Outpatient (AMB) | payer OTHER, SELFPAY ==
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
[2023-08-04 13:24] VITALS: BP 142/79; PULSE 64; RESP 14; O2SAT 99; BMI 32.1
== END 2023-08-04 13:55 | disposition home or self-care (01) ==
PROVIDERS: PCP Internal Medicine; Visit Provider Nurse Practitioner Family
DX: M79.2 Neuralgia and neuritis, unspecified (principal); G89.29 Other chronic pain; M79.671 Pain in right foot; M79.672 Pain in left foot; M54.50 Low back pain, unspecified; I83.12 Varicose veins of left lower extremity with inflammation; G57.93 Unspecified mononeuropathy of bilateral lower limbs
CPT/HCPCS: 99214

== ENCOUNTER → 2023-08-04 13:17 | Outpatient (BNVA) | payer OTHER, SELFPAY | PROVIDERS: PCP Internal Medicine; Visit Provider Nurse Practitioner Family | DX: M54.50 Low back pain, unspecified (principal); M79.671 Pain in right foot; M79.672 Pain in left foot; G89.29 Other chronic pain; G57.93 Unspecified mononeuropathy of bilateral lower limbs; I83.12 Varicose veins of left lower extremity with inflammation; E55.9 Vitamin D deficiency, unspecified | CPT/HCPCS: 99212 ==

== ENCOUNTER 2023-08-31 06:19 | Outpatient (REF) | payer OTHER, SELFPAY | END 2023-08-31 06:20 | disposition home or self-care (01) | LOC: CF 06:19 | PROVIDERS: Visit Provider Internal Medicine | DX: M79.2 Neuralgia and neuritis, unspecified (principal); M25.571 Pain in right ankle and joints of right foot; G89.29 Other chronic pain; Z45.42 Encounter for adjustment and management of neurostimulator | CPT/HCPCS: 64555; C1778 ==

== ENCOUNTER 2023-08-31 09:35 | Outpatient (AMB) | payer OTHER, SELFPAY ==
--- NOTE | 2023-08-31 10:08 | MHC.OFFVIS ---
Vital Signs 08/31/23 10:42 08/31/23 10:43 Height 5 ft 11 in Weight 230 lb BMI 32.1 BP 132/82 138/88 Blood Pressure Location Lt brachial Lt brachial Position Sitting Sitting Respiration 18 18 Pulse 71 88 Pulse Source Pulse Oximeter Pulse Oximeter Pulse Oximetry (%) 98 96 Oxygen Delivery Method Room Air Room Air Comment Pre-Op Post-Op Intake Visit Reasons: right sciatic nerve Sprint Allergies Sulfa (Sulfonamide Antibiotics) Allergy (Intermediate, Verified 09/01/23 11:49) Itchy HPI HPI right sciatic nerve Sprint: Details: Patient presents for scheduled procedure. Denies any recent cough, cold, infection, fever or other significant changes in medical history since last office visit. 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 After the risks, benefits and alternatives were discussed with the patient and informed consentwas obtained, patient was placed in the supine position and padded to foster comfort. Appropriate skin and bony landmarks were identified, and pertinent vascular structures were located. The skin overlying the needle entry site was prepped and draped in sterile fashion. Ultrasound was used to identify the popliteal artery and the sciatic nerve, proximal to the popliteal fossa. After identifying and marking the intended target along the course of the sciatic nerve, the skin around the planned entry point and the subcutaneous tissues Were injected with local anesthetic. An introducer needle and stimulating probe were assembled, inserted and advanced along the intended course of the sciatic nerve in proximity to the bifurcation into the peroneal and the tibial components, taking care to maintain the proper depth of insertion as the introducer was advanced under ultrasound guidance. The introducer needle was delivered to a location in proximity to the nerve taking care not to puncture the popliteal artery or the vein. The needle was delivered in proximity to the tibial component of the sciatic nerve. Multiple stimulation parameters were used to deliver stimulation to the sciatic nerve in concert with stimulating at multiple positions around the nerve. Nerve target acquisition was confirmed noting generation of sensory and mild motor effects (paresthesia, muscle tension, etc) in the posterior leg and ankle; corresponding to the distribution of the sciatic nerve. Various electrical parameter combinations were tested, and the lead location was adjusted (physically relocated under ultrasound guidance) until the patient indicated ankle paresthesia and tension overlapping the distribution of the patient?s typical region of pain. The stimulating probe was removed from the introducer and a percutaneous lead was guided through the needle and delivered to a location in similar proximity to the nerve. Final location was verified with electrical stimulation and documented. The introducer needle was removed, and the exposed end of the percutaneous lead was attached to an external stimulator unit. Various electrical parameter combinations were again tested until the patient indicated paresthesia and muscle tension overlapping the distribution of the patient?s typical region of pain. After confirming that lead impedance was in the normal range, the external unit was detached, the needle was removed, and the lead was anchored at the skin. The lead was threaded into the connector block and electrical continuity and desired patient response was confirmed. The connector block was attached to the external stimulator unit. The site was covered with a sterile occlusive dressing. A final ultrasound image was taken to document final placement. The patient was observed for stability of vital signs and comfort. 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 Patient tolerated procedure well and was discharged home in stable condition with discharge instructions. All questions were answered. We will follow-up via telephone or in clinic to assess response to therapy. A follow-up appointment was made during today's visit. Orders: Orders US guide needle placement 08/31/23 M79.2 - Neuralgia and neuritis, unspecified, G89.29 - Other chronic pain AMB Sprint PNS 08/31/23 M79.2 - Neuralgia and neuritis, unspecified, G89.29 - Other chronic pain Coding Level of Care Code Procedure Only Diagnoses Chronic peripheral neuropathic pain M79.2; G89.29 Chronic pain of right ankle M25.571; G89.29 CRPS 1 (complex regional pain syndrome I) of lower limb G90.529 CPT Codes Sprint PNS - Sprint PNS Device: Sprint PNS Device ([id number]) Sprint PNS - SPRINT: 55806 - Percutaneous Peripheral Neuroelectrode ([id number]) Implantable Device Implantable Device Implantable Devices Qty Bearing Machine Operator Implant Date Expiration Date Analgesic PENS system 1 [employer] 08/31/23 12/16/24
[2023-08-31 10:42] VITALS: BP 132/82; PULSE 71; RESP 18; O2SAT 98; BMI 32.1
[2023-08-31 10:43] VITALS: BP 138/88; PULSE 88; RESP 18; O2SAT 96
== END 2023-08-31 10:44 | disposition home or self-care (01) ==
LOC: HO.PMCPRC 09:35
PROVIDERS: PCP Internal Medicine; Visit Provider Internal Medicine
DX: M79.2 Neuralgia and neuritis, unspecified (principal)
CPT/HCPCS: 64555

== ENCOUNTER 2023-09-01 10:06 | Outpatient (AMB) | payer OTHER, SELFPAY ==
[2023-09-01 11:49] VITALS: BMI 32.1
--- NOTE | 2023-09-01 11:49 | A.OFFVIS_ITS ---
Intake Vital Signs 09/01/23 11:49 Height 5 ft 11 in Weight 230 lb BMI 32.1 Intake Visit Reasons: Left GSV Venaseal Accompanied by: Self / Same As Patient Allergies Sulfa (Sulfonamide Antibiotics) Allergy (Intermediate, Verified 09/01/23 11:49) Itchy PFSH Medical History Obesity (BMI 30-39.9) Vitamin D deficiency Hypercholesteremia Bilateral breast lump Surgical History History of ankle surgery History of foot surgery Family History Mother Diabetes Father Substance use disorder Social History Housing: House Alcohol intake: never Patient Tobacco Use Status: Former Tobacco user Quit Date: 5 years ago e-Cigarette/Vaping Use: Never Used Second Hand Smoke Exposure: No service: No Current occupational status: employed 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 The depth and diameter of the vein(s) to be treated was documented. The patient was placed supine on the procedure table and the leg was prepped and draped using sterile technique. Ultasound guidance was again used to localize the access site. 1% lidocaine was injected as a local anesthetic in the subcutaneous tissues at the target location in the GSV in the lower leg. Using ultrasound guidance, access was gained at this location with the 19 gauge thin walled access needle and followed by introduction of a short guidewire, location confirmed with ultrasound. A small, 3 mm incision was made at the access site to allow for introduction and placement of the 7 Fr x7cm introducer/dilator. The dilator and guidewire were removed. The 0.035 guidewire from the VenaSeal kit was then introduced and positioned at the saphenofemoral junction using ultrasound guidance. The 80 cm 7 Fr introducer sheath/dilator was positioned 5cm from the saphenofemoral junction. The guidewire and dilator were removed, and the remaining sheath was flushed with sterile saline, with the syringe remaining in place prior to the next steps. The cyanoacrylate adhesive was precisely primed into the 5 F delivery catheter and this catheter/syringe combination was attached within the dispenser gun. This assembly was introduced through the 7F sheath and positioned 5 cm caudal of the saphenofemoral junction under ultrasound guidance. The steps from the IFU were followed for dispensing amounts, locations and compression times, 2 aliquots proximally with 3 minutes of compression, and 1 aliquot every 3 cm distally with 30 sec of compression along the course of the vessel. Following the last injection and compression sequence, the catheter and introducer sheath were pulled out from the access site. Hemostasis was achieved with manual compression and an adhesive bandage was applied to the incision. Ultrasound confirmed complete coaptation and closure of the treated segments of the GSV, and the absence of any DVT at the saphenofemoral junction. Treatment time was approximately 4 minutes and the vein length treated was 8 cm. The drapes were removed and the patient cleaned and prepared for discharge. Post op ultrasound check is scheduled for 48-72 hours and the patient was given written post-op instructions. 66281 - Endoven Ther Chem Adhes 1st All charges added?: Procedure code (CPT) selection complete Assessment & Plan Assessment & Plan (1) Varicose veins of left lower extremity with inflammation: Comment: 01/21/2022 - left GSV Radiofrequency ablation 03/04/2022 - left leg microphlebectomy 09/01/2023 - left great saphenous vein Cyanoacralate ablation Code(s): I83.12 - Varicose veins of left lower extremity with inflammation Plan: See op note Coding Level of Care Code Procedure Only Diagnoses Varicose veins of left lower extremity with inflammation I83.12 CPT Codes Details - Vascular 3: 44531 - Endoven Ther Chem Adhes 1st ([id number])
== END 2023-09-01 12:48 | disposition home or self-care (01) ==
PROVIDERS: PCP Internal Medicine; Visit Provider Surgery Vascular Surgery
DX: I83.12 Varicose veins of left lower extremity with inflammation (principal)
CPT/HCPCS: 36482

== ENCOUNTER → 2023-09-01 10:06 | Outpatient (BNVA) | payer OTHER, SELFPAY | PROVIDERS: PCP Internal Medicine; Visit Provider Surgery Vascular Surgery | DX: I83.12 Varicose veins of left lower extremity with inflammation (principal) | CPT/HCPCS: 36482 ==

== ENCOUNTER 2023-09-04 10:20 | Outpatient (REF) | payer OTHER, SELFPAY ==
--- NOTE | ~2023-09-04 | US_ITS ---
EXAMINATION: TRIPLEX SCANNING OF LEFT LOWER EXTREMITY; SUPERFICIAL ULTRASOUND WITH DOPPLER OF LEFT LOWER EXTREMITY CLINICAL INFORMATION: Status post Venaseal of the left great saphenous vein COMPARISON: preprocedure studies. TECHNIQUE: Color flow triplex imaging and compression Doppler were performed as well as superficial ultrasound with Doppler. FINDINGS: LEFT LOWER EXTREMITY DEEP VENOUS SYSTEM: Respiratory variation, normal compression and augmented flow are noted throughout the lower extremity. The visualized common femoral vein, femoral vein, profunda femoral vein, popliteal vein and the calf veins show no evidence of deep venous thrombosis. There is no evidence of Herman's cyst. SUPERFICIAL VENOUS SYSTEM: The great saphenous vein is occluded from the access site to 2.4 cm before the saphenofemoral junction. There is no extension of thrombus into the deep system. US/US venous duplex LE LT IMPRESSION: 1. No evidence of DVT. 2. Excellent appearance status post ablation of the left great saphenous vein.
== END 2023-09-04 10:21 | disposition home or self-care (01) ==
LOC: HO.US 10:20
PROVIDERS: PCP Internal Medicine; Visit Provider Surgery Vascular Surgery
DX: M79.605 Pain in left leg (principal)
CPT/HCPCS: 93971

== ENCOUNTER → 2023-09-06 09:42 | Outpatient (BNVA) | payer OTHER, SELFPAY | PROVIDERS: PCP Internal Medicine; Visit Provider Registered Nurse Emergency ==

== ENCOUNTER 2023-09-19 09:45 | Outpatient (AMB) | payer OTHER, SELFPAY ==
[2023-09-19 09:51] VITALS: BMI 32.4
--- NOTE | 2023-09-19 09:51 | A.OFFVIS_ITS ---
Vital Signs 09/19/23 09:51 Height 5 ft 11 in Weight 232 lb BMI 32.4 Intake Visit Reasons: F/U Left GSV Venaseal 09/01/23 Intake Note: follow up Left GSV Venaseal 09/01/23 and Hx of Left GSV RFA 01/21/2022 & Left Micro 03/04/2022. Pt states that he has some itching over treated area, no redness or rash. Accompanied by: Self / Same As Patient Allergies Sulfa (Sulfonamide Antibiotics) Allergy (Intermediate, Verified 09/19/23 09:54) Itchy HPI HPI F/U Left GSV Venaseal 09/01/23: Details: Very pleasant 38-year-old gentleman presents for follow-up status post left great saphenous leg Cyanoacralate ablation. He appears to be doing relatively well since the procedure. Does have large varicosities in the left calf that have been a source pain and discomfort for him. Now presents to us for follow- up. 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 Cognitive needs: Yes (Cane) Hearing needs: No Vision needs: No Review of Systems Const Reports as per HPI ENT Reports no additional complaints Card Denies chest pain, Denies chest pain at rest and Denies chest pain with activity Resp Denies chest congestion and Denies cough GI Reports no additional complaints Musc Details: pain over varicosities, aching of lower extremities, swelling, cramping, heaviness and tiredness, itching Denies abnormal gait Skin/Breast Reports pruritus and Denies wounds Neuro Reports no additional complaints and Denies abnormal gait Psych Denies no additional complaints Physical Exam Vital Signs: BMI result Body Mass Index 32.4 Const General: cooperative, healthy appearing and comfortable Orientation/consciousness: oriented to person, oriented to place and oriented to time Neck Carotids: no bruits Chest Chest palpation & inspection: normal inspection of the chest and normal palpation of entire chest wall Resp Effort & Inspection: normal respiratory effort and able to speak in complete sentences Cardio Rate: regular rate Heart sounds: S1 normal heart sound present and S2 normal heart sound present Peripheral pulses: Peripheral pulses 2+ throughout GI Inspection: Yes normal to inspection Skin Other: +2 edema, large rope-like varicosities greater than 4 mm left calf CEAP Classification C4 - skin color changes Ep - Etiology Primary As - superficial veins P - reflux General skin exam: dry skin Neuro General: oriented to person, oriented to place and oriented to time Extrem Right lower extremity: full ROM, normal capillary refill and edema Left lower extremity: full ROM, normal capillary refill and edema Psych Mental Status: mental status grossly normal Assessment & Plan Assessment & Plan (1) Varicose veins of left lower extremity with inflammation: Comment: 01/21/2022 - left GSV Radiofrequency ablation 03/04/2022 - left leg microphlebectomy 09/01/2023 - left great saphenous vein Cyanoacralate ablation Code(s): I83.12 - Varicose veins of left lower extremity with inflammation Category: Medical Plan: This patient has varicose veins with inflammation. They continue to be a source of discomfort for the patient. The patient has tried conservative treatment with compression, leg elevation and exercise program for over 3 months time. They have been compliant with all treatment. This has provided minimal relief for the patient. I do not anticipate this course of treatment will alter the underlying etiology. The patient has been scheduled for lower extremity venous treatment inclusive of --- left leg microphlebectomy. Risks, benefits, and complications of this procedure has been discussed in detail with the patient including but not limited to bleeding, infection, and the development of a DVT. The patient has demonstrated a clear understanding and has consented. We will schedule the patient as soon as possible. Thank you for allowing us to participate in this patient's care. If there are any questions or concerns please do not hesitate to contact us. Coding Level of Care Code Est Pt Level 4 (97586) Diagnoses Varicose veins of left lower extremity with inflammation I83.12
== END 2023-09-19 10:10 | disposition home or self-care (01) ==
PROVIDERS: PCP Internal Medicine; Visit Provider Surgery Vascular Surgery
DX: I83.12 Varicose veins of left lower extremity with inflammation (principal)
CPT/HCPCS: 99214

== ENCOUNTER → 2023-09-19 09:45 | Outpatient (BNVA) | payer OTHER, SELFPAY | PROVIDERS: PCP Internal Medicine; Visit Provider Surgery Vascular Surgery | DX: I83.12 Varicose veins of left lower extremity with inflammation (principal) | CPT/HCPCS: 99212 ==

== ENCOUNTER 2023-09-21 06:12 | Outpatient (REF) | payer OTHER, SELFPAY | END 2023-09-21 06:13 | disposition home or self-care (01) | LOC: CF 06:12 | PROVIDERS: Visit Provider Internal Medicine | DX: G90.529 Complex regional pain syndrome I of unspecified lower limb (principal); M79.671 Pain in right foot; M79.672 Pain in left foot; M79.2 Neuralgia and neuritis, unspecified | CPT/HCPCS: 64555; C1778 ==

== ENCOUNTER 2023-09-21 09:37 | Outpatient (AMB) | payer OTHER, SELFPAY ==
--- NOTE | 2023-09-21 09:31 | MHC.OFFVIS ---
Vital Signs 09/21/23 09:37 09/21/23 11:01 Height 5 ft 11 in Weight 232 lb BMI 32.4 BP 128/74 134/80 Blood Pressure Location Lt brachial Lt brachial Position Sitting Sitting Respiration 20 Pulse 96 88 Pulse Source Pulse Oximeter Pulse Oximeter Pulse Oximetry (%) 98 95 Oxygen Delivery Method Room Air Room Air Comment Pre-Op Post-Op Intake Visit Reasons: Left sciatic nerve Sprint Allergies Sulfa (Sulfonamide Antibiotics) Allergy (Intermediate, Verified 09/19/23 09:54) Itchy HPI HPI Left sciatic nerve Sprint: Details: Patient presents for scheduled procedure. Denies any recent cough, cold, infection, fever or other significant changes in medical history since last office visit. 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 After the risks, benefits and alternatives were discussed with the patient and informed consent was obtained, patient was placed in the supine position and padded to foster comfort. Appropriate skin and bony landmarks were identified, and pertinent vascular structures were located. The skin overlying the needle entry site was prepped and draped in sterile fashion. Ultrasound was used to identify the popliteal artery and the sciatic nerve, proximal to the popliteal fossa. After identifying and marking the intended target along the course of the sciatic nerve, the skin around the planned entry point and the subcutaneous tissues Were injected with local anesthetic. An introducer needle and stimulating probe were assembled, inserted and advanced along the intended course of the sciatic nerve in proximity to the bifurcation into the peroneal and the tibial components, taking care to maintain the proper depth of insertion as the introducer was advanced under ultrasound guidance. The introducer needle was delivered to a location in proximity to the nerve taking care not to puncture the popliteal artery or the vein. The needle was delivered in proximity to the tibial component of the sciatic nerve. Multiple stimulation parameters were used to deliver stimulation to the sciatic nerve in concert with stimulating at multiple positions around the nerve. Nerve target acquisition was confirmed noting generation of sensory and mild motor effects (paresthesia, muscle tension, etc) in the posterior leg and ankle; corresponding to the distribution of the sciatic nerve. Various electrical parameter combinations were tested, and the lead location was adjusted (physically relocated under ultrasound guidance) until the patient indicated ankle paresthesia and tension overlapping the distribution of the patient?s typical region of pain. The stimulating probe was removed from the introducer and a percutaneous lead was guided through the needle and delivered to a location in similar proximity to the nerve. Final location was verified with electrical stimulation and documented. The introducer needle was removed, and the exposed end of the percutaneous lead was attached to an external stimulator unit. Various electrical parameter combinations were again tested until the patient indicated paresthesia and muscle tension overlapping the distribution of the patient?s typical region of pain. After confirming that lead impedance was in the normal range, the external unit was detached, the needle was removed, and the lead was anchored at the skin. The lead was threaded into the connector block and electrical continuity and desired patient response was confirmed. The connector block was attached to the external stimulator unit. The site was covered with a sterile occlusive dressing. A final ultrasound image was taken to document final placement. The patient was observed for stability of vital signs and comfort. Sprint PNS Device: Sprint PNS Device [id number] Percutaneous Peripheral Neuroelectrode Procedure: 89071 - Percutaneous Peripheral Neuroelectrode Procedure code (CPT) selection complete Office Meds lidocaine (PF) 50 mg/5 mL (1 %) injection syringe Performing Provider: Kasia Obando APRN, ASSISTANT TENNIS COACH Performing Location: [facility] [place] Administered by: Tali Nelson LPN on 09/21/23 10:21 Dose Route Admin Location Dispensed Lot Number Expiration Date [facility] [employer] 5 mL subcut 5 mL Assessment & Plan Assessment & Plan (1) Chronic pain of both feet: Code(s): M79.671 - Pain in right foot; M79.672 - Pain in left foot; G89.29 - Other chronic pain Category: Medical (2) CRPS 1 (complex regional pain syndrome I) of lower limb: Code(s): G90.529 - Complex regional pain syndrome I of unspecified lower limb Category: Medical Plan Patient is status post left left sciatic nerve stimulator placement. Patient tolerated procedure well and was discharged home in stable condition with discharge instructions. All questions were answered. We will follow-up via telephone or in clinic to assess response to therapy. A follow-up appointment was made during today's visit. Orders: Orders FL guidance in treatment room Today G89.29 - Other chronic pain, M79.2 - Neuralgia and neuritis, unspecified AMB Sprint PNS Today G89.29 - Other chronic pain, M79.2 - Neuralgia and neuritis, unspecified Coding Level of Care Code Procedure Only Diagnoses Chronic pain of both feet M79.671; M79.672; G89.29 CRPS 1 (complex regional pain syndrome I) of lower limb G90.529 CPT Codes Sprint PNS - Sprint PNS Device: Sprint PNS Device ([id number]) Sprint PNS - SPRINT: 72670 - Percutaneous Peripheral Neuroelectrode ([id number]) Implantable Device Implantable Device Implantable Devices Qty Aerospace Engineer Officer Armament Implant Date Expiration Date Analgesic PENS system 1 [employer] 08/31/23 12/16/24 Analgesic PENS system 1 [employer] 09/21/23 01/05/25
[2023-09-21 09:37] VITALS: BP 128/74; PULSE 96; RESP 20; O2SAT 98; BMI 32.4
[2023-09-21 11:01] VITALS: BP 134/80; PULSE 88; O2SAT 95
== END 2023-09-21 10:49 | disposition home or self-care (01) ==
LOC: HO.PMCPRC 09:37
PROVIDERS: PCP Internal Medicine; Visit Provider Internal Medicine
DX: M79.2 Neuralgia and neuritis, unspecified (principal)
CPT/HCPCS: 64555

== ENCOUNTER 2023-09-25 09:39 | Day surgery (SDC) | payer OTHER, SELFPAY ==
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
[2023-09-25] VITALS (7 sets, daily range): BP systolic 126–176; BP diastolic 65–108; PULSE 69–98; RESP 12–16; TEMP 36.6–37.2; O2SAT 98–100; BMI 32.2
--- NOTE | 2023-09-25 07:41 | MHC.SHP ---
Pre-Procedural Eval Section A - 24 Hr Update-Section A only Date of Service: 09/25/23 The patient is an INPATIENT: No Changes since office visit: Yes Patient answered all questions The patient has been examined within 24 hours of the surgical procedure. The History & Physical has been completed within 30 days and I have reviewed it.: Yes Section B - Complete if H&P > 30 days Chief Complaint: Varicose veins of left lower extremity with inflam Allergies: Allergies Allergy/AdvReac Type Severity Reaction Status Date / Time Sulfa (Sulfonamide Allergy Intermediate Itchy Verified 09/19/23 09:54 Antibiotics) Plan I have reviewed the history and physical and performed a pertinent physical examination on my patient. No changes have occurred unless specified. Time Spent With Patient Time: Total time managing care of this patient today ____ minutes.
[2023-09-25] MEDS: Lactated Ringers 1,000 ML 100 ML IVCONT (11:46)
--- NOTE | 2023-09-25 14:23 | W.PM.OPN ---
Operative Note Operative Note Date of Service: 09/25/23 Narrative: Operative note by [facility] Preoperative diagnosis: Left leg varicose veins with inflammation Postoperative diagnosis: Same Procedure:1. Left leg microphlebectomy(21) 2. Left leg venous cluster ligation Surgeon:Anjel Laureano M.D. Inside Sales Account Representative: Idania Anesthesia: General Specimens: 1 Drains: None Estimated blood loss: Minimal Indications: Pleasant 38-year-old gentleman who has left leg varicose veins with inflammation. He has undergone previous ablation and now presents for microphlebectomy. The patient has signed the informed consent after reviewing risks, complications, benefits, and alternatives previously discussed with the patient. The patient was given the opportunity to ask any additional questions or voice any concerns. All questions were answered to the patient's satisfaction. Procedure in detail: Varicose veins were marked in the standing position on the left leg and the patient was then placed in the supine position. The left lower extremity was prepared and draped to allow knee flexion in the sterile field. The patient had large superficial varicose veins with significant symptoms of pain. It was therefore determined to perform microphlebectomies of the clusters of varicose veins. The patient had bulging varicose veins which were previously marked in the standing position. A small stab incision was made longitudinally directly overlying the varicose vein in the calf and the varicose vein was grasped with a hemostat aided by a vein hook. It was then dissected as far proximally and distally as possible and avulsed. A total of 21 stab incisions were made and the procedure of stab phlebectomies was repeated 21 times. In the left medial calf there was a large cluster varicosities. The base was identified and ligated with a 3-0 Polysorb suture. Residual varicosities were removed. Hemostasis was checked and stab incision sites were closed with steri-strips and sterile dressing was given with gauze and krilex wrap followed by an valeria bandage. There were no complications and blood loss was minimal. Post-Op instructions were given and a follow-up appointment was recommended. This note is constructed using voice recognition software. While every effort has been made to ensure accuracy, pharmacogeneticist errors may have been included. Thank you for allowing me to participate in the care of your patient. Yours sincerely, Anjel Laureano MD, FACS, R.P.V.I.
[2023-09-25] MEDS: fentaNYL citrate/PF 100 MCG/2 ML VIAL 25 MCG IVPUSH (14:25)
[2023-09-25] MEDS: oxyCODONE HCl Immed Release 5 MG TABLET PO (14:38)
== END 2023-09-25 15:56 | disposition home or self-care (01) ==
PROVIDERS: PCP Internal Medicine; Visit Provider Surgery Vascular Surgery
PROC: (CPT 37766; principal; 2023-09-25 12:10)
DX: I83.12 Varicose veins of left lower extremity with inflammation (principal); E78.00 Pure hypercholesterolemia, unspecified; E55.9 Vitamin D deficiency, unspecified; E66.9 Obesity, unspecified; Z68.32 Body mass index [BMI] 32.0-32.9, adult; Z79.51 Long term (current) use of inhaled steroids; Z88.2 Allergy status to sulfonamides; Z98.890 Other specified postprocedural states; Z87.891 Personal history of nicotine dependence
CPT/HCPCS: 37766; 37785; 88304; A4364; J0690; J1100; J2250; J2405; J2704; J2795; J3010

== ENCOUNTER → 2023-09-25 09:39 | Outpatient (BNV) | payer OTHER, SELFPAY | PROVIDERS: PCP Internal Medicine; Visit Provider Surgery Vascular Surgery | DX: I83.12 Varicose veins of left lower extremity with inflammation (principal) | CPT/HCPCS: 37766; 37785 ==

== ENCOUNTER 2023-09-27 09:23 | Outpatient (AMB) | payer OTHER, SELFPAY ==
--- NOTE | 2023-09-27 09:27 | A.OFFVIS_ITS ---
Vital Signs 09/27/23 09:28 Height 6 ft Weight 236 lb BMI 32.0 BP 149/78 H Blood Pressure Location Lt brachial Position Sitting Respiration 14 Pulse 72 Pulse Source Pulse Oximeter Pulse Oximetry (%) 100 Oxygen Delivery Method Room Air Intake Visit Reasons: s/p left sciatic Sprint Allergies Sulfa (Sulfonamide Antibiotics) Allergy (Intermediate, Verified 09/27/23 09:27) Itchy Medication List - Last Reconciled 09/27/23 by Tali Nelson LPN acetaminophen 500 - 1,000 mg (1 - 2 x 500 mg) PO Q6H PRN cholecalciferol (vitamin D3) 50 mcg PO DAILY fluticasone propionate 50 mcg/actuation 1 spray intranasal BID hydroxyzine HCl 25 mg PO BEDTIME PRN pregabalin 100 mg PO BID 30 days HPI HPI s/p left sciatic Sprint: Details: 38-year-old male presents for follow-up after bilateral tibial nerve temporary stimulator placement. He reports complete resolution of his pain in both his ankles. He continues to have a paresthesia sensation on his right side but does not have a paresthesia sensation in his left side. However he does endorse complete pain relief on both sides. He complains of some feeling of tightness on the left side at the lead insertion site but is able to tolerate it without too much difficulty. 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 Alert and oriented. Mood and affect appropriate. Follows and participates in conversation appropriately. Respiratory effort is unlabored. Able to transition from sit to stand unassisted. Ambulates with bilaterally normal heel strike and toe off. Able to stand and walk on toes and heels. Dressings removed during the visit today. The right-sided lead insertion site appeared to be infected with some drainage oozing out of the lead insertion site. The dressing itself had also not been changed in a while and was foul- smelling. Assessment & Plan Assessment & Plan (1) Chronic pain of both feet: Code(s): M79.671 - Pain in right foot; M79.672 - Pain in left foot; G89.29 - Other chronic pain Category: Medical Plan Excellent pain relief in both feet following trial stimulator leads placement. For the superficial infection surrounding the right lead, I will prescribe a course of Keflex 750 mg t.i.d. for 5 days. Prescription was sent to the patient 's pharmacy. I counseled the patient regarding daily dressing changes given his rigorous exercise routine that causes sweating and soaking of the dressings. Patient expressed understanding. If his infection does not clear up with antibiotic use, we will consider removing the lead on the right prematurely. Medications: New cephalexin 750 mg PO TID 15 caps 0RF Coding Level of Care Code Est Pt Level 3 (18749) Diagnoses Chronic pain of both feet M79.671; M79.672; G89.29
[2023-09-27 09:28] VITALS: BP 149/78; PULSE 72; RESP 14; O2SAT 100; BMI 32.0
== END 2023-09-27 09:52 | disposition home or self-care (01) ==
PROVIDERS: PCP Internal Medicine; Visit Provider Internal Medicine
DX: M79.671 Pain in right foot (principal); M79.672 Pain in left foot; G89.29 Other chronic pain
CPT/HCPCS: 99024

== ENCOUNTER → 2023-09-27 09:23 | Outpatient (BNVA) | payer OTHER, SELFPAY | PROVIDERS: PCP Internal Medicine; Visit Provider Internal Medicine | DX: M79.671 Pain in right foot (principal); M79.672 Pain in left foot; G89.29 Other chronic pain | CPT/HCPCS: 99212 ==

== ENCOUNTER 2023-10-10 09:46 | Outpatient (AMB) | payer OTHER, SELFPAY ==
--- NOTE | 2023-10-10 09:50 | A.OFFVIS_ITS ---
Intake Visit Reasons: 2 week follow up left leg micro Intake Note: Patient presents for follow up s/p left leg micro (done in OR) , patient has no complaints. Allergies Sulfa (Sulfonamide Antibiotics) Allergy (Intermediate, Verified 10/10/23 09:52) Itchy HPI HPI 2 week follow up left leg micro: Details: Very pleasant 38-year-old gentleman presents for follow-up regarding left leg microphlebectomy. This was done in the operating room and he reports a good result. Pain and discomfort have significantly improved. Now presents for routine postprocedure follow-up. 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 Cognitive needs: Yes (Cane) Hearing needs: No Vision needs: No Review of Systems Const All systems reviewed & are unremarkable except as noted in HPI and below Reports no additional complaints ENT Reports Normal hearing present Card Denies chest pain, Denies chest pain at rest, Denies chest pain with activity and Denies pedal edema Resp Denies cough GI Denies abdominal pain Musc Denies abnormal gait, Denies muscle cramps and Denies radiating pain into limb Skin/Breast Denies skin ulcer and Denies wounds Neuro Reports Normal hearing present and Denies abnormal gait Psych Reports no additional complaints Physical Exam Const General: cooperative, healthy appearing and comfortable Orientation/consciousness: oriented to person, oriented to place and oriented to time HEENT Head: Yes normal to inspection Neck Neck: Yes normal visual inspection Carotids: no bruits Chest Chest palpation & inspection: normal inspection of the chest Resp Effort & Inspection: normal respiratory effort and able to speak in complete sentences Auscultation: clear to auscultation bilaterally, no crackles, no rales, no rhonchi and no wheezes Cardio Rate: regular rate Rhythm: regular rhythm Heart sounds: S1 normal heart sound present and S2 normal heart sound present Bruits: no carotid bruits Peripheral pulses: Peripheral pulses 2+ throughout GI Inspection: Yes normal to inspection Skin Other: Left leg incisions healing well Wounds: no wounds Hair: normal Neuro General: oriented to person, oriented to place and oriented to time Cranial nerves: Yes CN's II-XII intact bilaterally and Yes Normal hearing present Cognition (Neuro): normal cognition Motor exam (neuro): 5/5 motor strength present throughout Extrem Other: venous exam: No significant superficial varicosities or spider telangiectasias, minimal edema General: No clubbing, No cyanosis and No edema Psych Appearance: grossly normal Mental Status: mental status grossly normal Speech and movement: Normal speech and movement present Assessment & Plan Assessment & Plan (1) Varicose veins of left lower extremity with inflammation: Comment: 01/21/2022 - left GSV Radiofrequency ablation 03/04/2022 - left leg microphlebectomy 09/01/2023 - left great saphenous vein Cyanoacralate ablation 09/25/2023 - left leg operative microphlebectomy Code(s): I83.12 - Varicose veins of left lower extremity with inflammation Category: Medical Plan: The patient has done extremely well with all venous treatments. Patient's may often experience postprocedure phlebitic episodes and I have discussed with the patient use of warm compresses and NSAIDS if tolerated for pain discomfort. In addition, I have discussed continued conservative measures including use of compression, leg elevation, and exercise. The patient was also given an information sheet regarding appropriate use of compression stockings and future purchases. Thank you for allowing us to care for your patient with venous disease. Coding Level of Care Code Est Pt Level 3 (94971) Diagnoses Varicose veins of left lower extremity with inflammation I83.12
== END 2023-10-10 10:05 | disposition home or self-care (01) ==
PROVIDERS: PCP Internal Medicine; Visit Provider Surgery Vascular Surgery
DX: I83.12 Varicose veins of left lower extremity with inflammation (principal)
CPT/HCPCS: 99024

== ENCOUNTER → 2023-10-10 09:46 | Outpatient (BNVA) | payer OTHER, SELFPAY | PROVIDERS: PCP Internal Medicine; Visit Provider Surgery Vascular Surgery | DX: I83.12 Varicose veins of left lower extremity with inflammation (principal) | CPT/HCPCS: 99212 ==